=== PATIENT | female | born 1975 | race Caucasian/White ===

== ENCOUNTER 2016-10-21 19:21 | Emergency (ER) | payer SELFPAY ==
--- NOTE | 2016-10-21 21:06 | ER Document Report ---
ED GI/ - General Chief Complaint: Vaginal Bleeding Stated Complaint: VAGINAL BLEEDING Mode of Arrival: Ambulatory Information source: Patient Notes: Patient states that she is about 8 weeks and had some vaginal spotting that started 6 days ago. Patient states today she started to have heavy bleeding with clots. Patient denies any abdominal pain or back pain. Patient denies any nausea, vomiting, or fever. Patient denies any urinary symptoms. [facility] but had yet to have an ultrasound to confirm the . Patient denies any history of hypertension although states she is very anxious because she was not planning this and just told her mother that she was . - HPI Patient complains to provider of: , Vaginal bleeding. No: Abdominal pain Onset: This morning Timing/Duration: Worse Quality of pain: No pain Pain Level: 0 Vaginal bleeding (Compared to normal period): Passing clots Menstrual period history: Associated symptoms: denies: Chest pain, Dizzy, Fever, Loss of appetite, Nausea , Urinary hesitancy, Urinary frequency, Urinary retention, Urinary urgency, Vaginal discharge, Vomiting Exacerbated by: Denies Relieved by: Denies Similar symptoms previously: No Recently seen / treated by doctor: No Past Medical History - General Information source: Patient Last Menstrual Period: 8 weeks - Social History Smoking Status: Current Every Day Smoker Frequency of alcohol use: None Drug Abuse: None Occupation: cook seafood Family History: Reviewed & Not Pertinent, DM Psychiatric Medical History: Reports: Hx Anxiety, Hx Bipolar Disorder Past Surgical History: Reports: Hx Orthopedic Surgery Review of Systems - Review of Systems Constitutional: No symptoms reported. denies: Fever, Recent illness EENT: No symptoms reported Cardiovascular: No symptoms reported. denies: Chest pain, Lightheaded Respiratory: No symptoms reported. denies: Cough, Short of breath Gastrointestinal: No symptoms reported. denies: Abdominal pain, Nausea, Vomiting Genitourinary: No symptoms reported. denies: Dysuria Female Genitourinary: , Vaginal bleeding Musculoskeletal: No symptoms reported. denies: Back pain Skin: No symptoms reported Hematologic/Lymphatic: No symptoms reported Neurological/Psychological: No symptoms reported Physical Exam - Vital signs Vitals: Temp Pulse Resp BP Pulse Ox 98.4 F 119 H 16 166/100 H 100 10/21/16 20:17 10/21/16 20:17 10/21/16 20:17 10/21/16 20:17 10/21/16 20:17 - General General appearance: Appears well, Alert, Anxious In distress: None - HEENT Head: Normocephalic, Atraumatic Eyes: Normal Conjunctiva: Normal Nasal: Normal Mouth/Lips: Normal Mucous membranes: Normal Neck: Normal, Lymphadenopathy, Supple - Respiratory Respiratory status: No respiratory distress Chest status: Nontender Breath sounds: Normal Chest palpation: Normal - Cardiovascular Rhythm: Tachycardia Heart sounds: S1 appreciated, S2 appreciated Murmur: No - Abdominal Inspection: Normal Distension: No distension Bowel sounds: Normal Tenderness: Nontender Organomegaly: No organomegaly - Genitourinary External exam: Normal Speculum exam: Cervix closed Vaginal bleeding: Mild Bimanuel exam: Normal. No: Cervical motion tender, Adnexal mass, Adnexal tenderness - Back Back: Normal, Nontender. No: CVA tenderness - Extremities General upper extremity: Normal inspection, Normal strength General lower extremity: Normal inspection, Normal strength - Neurological Neuro grossly intact: Yes Cognition: Normal [place] Coma Scale Eye Opening: Spontaneous Harish Coma Scale Verbal: Oriented [place] Coma Scale Motor: Obeys Commands [place] Coma Scale Total: 15 - Psychological Associated symptoms: Normal affect, Anxious - Skin Skin Temperature: Warm Skin Moisture: Dry Skin Color: Normal Course - Re-evaluation Re-evalutation: 10/21/16 21:[address] Waterman who agrees with plan for ultrasound imaging 10/21/16 22:43 Discussed patient's diagnostic test results with her. Patient encouraged to follow-up Monday to have outpatient labs repeated and to follow-up with her oncologist on Monday. Patient states that her mother is a public affairs officer and she plans to go to her office on Monday for further evaluation. Patient also advised of elevated blood slept all. Patient states she does have a glucometer at home and can perform a fasting Accu-Chek tomorrow in the morning. Patient advised to follow-up with her primary doctor to have her blood sugar rechecked. 10/21/16 23:36 Patient visually much more calm. Patient states that she does feel much better. Repeat manual blood pressure within normal limits. Patient advised that she should have her blood pressure rechecked Monday by her [facility] provider as she did have a single elevated reading while here in the emergency department. Discussed plan of care with patient, patient verbalized understanding of instructions. Patient given instructions for outpatient quantitative hCG recheck to be completed on Monday. Patient plans to see her mother on Monday. Discussed worsening signs or symptoms that patient should return immediately for. - Vital Signs Vital signs: Temp Pulse Resp BP Pulse Ox 98.4 F 119 H 16 124/76 100 10/21/16 20:17 10/21/16 20:17 10/21/16 20:17 10/21/16 23:10 10/21/16 20:17 - Laboratory Result Diagrams: 10/21/16 21:27 10/21/16 21:27 Laboratory results interpreted by me: 10/21/16 10/21/16 21:27 21:27 WBC 14.0 H RDW 14.4 H Absolute Neutrophils 9.6 H Creatinine 0.45 L Glucose 260 H Calcium 10.4 H Beta HCG, Quant 3122.40 H Labs- Entire Visit 10/21/16 10/21/16 10/21/16 21:27 21:27 21:27 WBC 14.0 H RBC 5.21 Hgb 14.5 Hct 43.9 MCV 84 MCH 27.8 MCHC 33.0 RDW 14.4 H Plt Count 192 Seg Neutrophils % 68.5 Lymphocytes % 24.6 Monocytes % 5.4 Eosinophils % 1.0 Basophils % 0.5 Absolute Neutrophils 9.6 H Absolute Lymphocytes 3.5 Absolute Monocytes 0.8 Absolute Eosinophils 0.1 Absolute Basophils 0.1 Sodium 137.0 Potassium 4.3 Chloride 98 Carbon Dioxide 25 Anion Gap 14 BUN 9 Creatinine 0.45 L Est GFR ( Amer) > 60 Est GFR (Non-Af Amer) > 60 Glucose 260 H Calcium 10.4 H Total Bilirubin 0.5 Direct Bilirubin 0.0 AST 16 ALT 21 Alkaline Phosphatase 113 Total Protein 7.3 Albumin 4.2 Beta HCG, Quant 3122.40 H Total Beta HCG POSITIVE Blood Type O NEGATIVE Antibody Screen NEGATIVE Rhogam Indicated RHOGAM REQUESTED - Diagnostic Test Radiology reviewed: Reports reviewed Discharge - Discharge Clinical Impression: test positive, Vagina bleeding, Elevated random blood glucose level, Elevated blood pressure reading Condition: Stable Disposition: HOME, SELF-CARE Instructions: Ectopic Precaution ([facility]) Additional Instructions: Return immediately for any new or worsening symptoms Followup with your primary care provider, call tomorrow to make a followup appointment Return to the hospital on Monday for outpatient blood testing for repeat quantitative hCG test Your blood sugar was elevated today. Perform a fasting blood sugar test tomorrow morning after you wake up before you eat anything. Have your primary doctor recheck your blood sugar You had a single elevated blood pressure reading here today. Have your primary doctor recheck your blood pressure on Monday : You are . care is best started as early in as possible. If you're unsure about continuing this , you should discuss this with your physician or with sanding machine tender automatic at [facility]. You should take only medications approved by your physician. Acetaminophen can safely be taken for minor pains. As a rule, medication for chronic conditions such as asthma or seizures can safely be continued. You should discuss with the physician every medicine you take. Any regular exercise program can be continued. Talk to your physician, however, before engaging in competitive or demanding sports. Alcohol, smoking, and "street drugs" are dangerous to your baby. Cocaine is especially dangerous. Don't use any illicit drugs! RHOGAM: Rhogam is given to a woman who has Rh negative blood type when she has vaginal bleeding during her or at the time of the delivery of her baby. If a woman is Rh negative, her body will form antibodies against red blood cells from an Rh positive fetus or baby that mix with her blood during a threatened or actual miscarraige or delivery. These antibodies will remain in the woman's body forever and will attack any future Rh positive fetus preventing it from developing into a normal baby. Rhogam is given to prevent the mother's body from forming these antibodies. REPEAT BLOOD TEST: At this time, it is uncertain if you have a viable . During the first three months of , the hormone produced from the placenta will steadily rise, usually doubling in value every 2 - 3 days. In order to determine if your is viable and likely be succesful, a repeat of this blood test for the hormone is recommended in 2 - 3 days. An order for this test to be done as an outpatient is being provided. After you have this repeat test done, call your doctor or call us for the results. If the value of the test is increasing as would be expected in a normal , then your is likely to be ok. However, if the value of the test is declining, it will suggest something has happened with your and it will not likely be a successful . FOLLOW-UP CARE: If you have been referred to a physician for follow-up care, call the physician s office for an appointment as you were instructed or within the next two days. If you experience worsening or a significant change in your symptoms (very heavy bleeding with large clots of blood, passage of tissue, more severe abdominal / pelvic pain or cramping, feeling faint or severe weakness, fever, etc.), notify the physician immediately or return to the Emergency Department at any time for re-evaluation. OBSTETRIC-GYNECOLOGIC ([facility]-REPE[facility]IE[facility]) PHYSICIANS IN [place]: [facility] [address] [place] [address] [phone] Forms: Return to Work, Follow-Up Laboratory Testing Referrals: [facility] [Provider Group] - 10/24/16
[2016-10-21 21:52] LABS: ABSOLUTE BASOPHILS # (AUTO) 0.1 10^3/uL (0.0-0.2); ABSOLUTE EOSINOPHILS # (AUTO) 0.1 10^3/uL (0.0-0.6); ABSOLUTE LYMPHOCYTES (AUTO) 3.5 10^3/uL (0.5-4.7); ABSOLUTE MONOCYTES (AUTO) 0.8 10^3/uL (0.1-1.4); ABSOLUTE NEUT (AUTO) 9.6 10^3/uL (1.7-8.2); BASOPHILS % (AUTO) 0.5 % (0-2); HEMATOCRIT 43.9 % (36.0-47.0); HEMOGLOBIN 14.5 g/dL (12.0-15.5); HGB HCT DIFFERENCE -0.4; LYMPHOCYTES % (AUTO) 24.6 % (13-45); MEAN CORPUSCULAR HEMOGLOBIN 27.8 pg (27.0-33.4); MEAN CORPUSCULAR VOLUME 84 fl (80-97); MONOCYTES % (AUTO) 5.4 % (3-13); RED BLOOD COUNT 5.21 10^6/uL (3.72-5.28); RED CELL DISTRIBUTION WIDTH 14.4 % (11.5-14.0); SEGMENTED NEUTROPHILS % (AUTO) 68.5 % (42-78)
[2016-10-21 22:08] LABS: ALANINE AMINOTRANSFERASE 21 U/L (9-52); ALBUMIN 4.2 g/dL (3.5-5.0); ALKALINE PHOSPHATASE 113 U/L (38-126); ANION GAP 14 (5-19); ASPARTATE AMINO TRANSFERASE 16 U/L (14-36); BILIRUBIN,TOTAL 0.5 mg/dL (0.2-1.3); BLOOD UREA NITROGEN 9 mg/dL (7-20); CALCIUM 10.4 mg/dL (8.4-10.2); CARBON DIOXIDE 25 mmol/L (22-30); CHLORIDE 98 mmol/L (98-107); CREATININE RESULT 0.45 mg/dL (0.52-1.25); GLUCOSE 260 mg/dL (75-110); POTASSIUM 4.3 mmol/L (3.6-5.0); TOTAL PROTEIN 7.3 g/dL (6.3-8.2)
[2016-10-22 00:41] VITALS: BP 128/79
== END 2016-10-22 00:35 | disposition home or self-care (01) ==
LOC: ER 19:21
DX: O20.9 Hemorrhage in early pregnancy, unspecified (principal); O26.891 Other specified pregnancy related conditions, first trimester; R03.0 Elevated blood-pressure reading, without diagnosis of hypertension; R73.9 Hyperglycemia, unspecified; O99.341 Other mental disorders complicating pregnancy, first trimester; F41.9 Anxiety disorder, unspecified; O99.331 Smoking (tobacco) complicating pregnancy, first trimester; Z3A.08 8 weeks gestation of pregnancy
CPT/HCPCS: 99284; 86900; 86901; 36415; 86850; 84702; 85025; 80053; 76817; J2790

== ENCOUNTER → 2016-10-23 | Outpatient (CLI) | payer SELFPAY | LOC: LAB 11:02 | PROVIDERS: ATTEND Nurse Practitioner Family | DX: O46.90 Antepartum hemorrhage, unspecified, unspecified trimester (principal) | CPT/HCPCS: 36415; 84702 ==

== ENCOUNTER → 2016-10-26 | Outpatient (CLI) | payer SELFPAY | LOC: LAB 19:48 | PROVIDERS: ATTEND Midwife | DX: O03.9 Complete or unspecified spontaneous abortion without complication (principal) | CPT/HCPCS: 36415; 84702 ==